=== PATIENT | female | born 1990 | race Asian ===

== ENCOUNTER 2020-04-16 14:47 | Outpatient (CLI) | payer BC ==
[2020-04-16] MEDS ORDERED: IOVERSOL 320 100 ML VIAL IVP ONE (15:10)
--- NOTE | 2020-04-16 16:54 | CT Report ---
PROCEDURE: ABDOMEN W INDICATIONS: Cough, dyspnea CONTRAST: IV CONTRAST: Optiray 320 ml: 100 PO CONTRAST: Optiray 320 ml50 TECHNIQUE: After the administration of oral and intravenous contrast, 5 mm thick sections acquired from the diap hragms to the iliac crests. 5 mm thick coronal and sagittal reformats were acquired. For radiation dose reduction, the following was used: automated exposure control, adjustment of mA and/or kV accor ding to patient size. COMPARISON: None. FINDINGS: Image quality: Excellent. Lung bases: Lung bases are clear. Heart size is normal. Solid organs: Liver and spleen are normal in size and enhancement. Gallbladder is normal. Biliary system is non dilated. Pancreas enhances normally. No adrenal nodules. Kidneys are normal in size, without hydronephrosis. Peritoneum and bowel: Contrast enhanced bowel loops appear normal in caliber. No free fluid or air. Nodes and vessels: No retroperitoneal or mesenteric adenopathy by size criteria. Aorta and inferior vena cava are normal in size. Bones: No suspicious bony lesions. No vertebral body compression fractures. Miscellaneous: No ventral hernias. IMPRESSION: No acute finding or other finding to explain symptoms. Reviewed by: Arturo Feng MD on 04/16/2020 4:52 PM PST Approved by: Arturo Feng MD on 04/16/2020 4:52 PM PST Station ID: [id number]
== END 2020-04-16 14:48 | disposition home or self-care (01) ==
LOC: DI 14:47
DX: K43.9 Ventral hernia without obstruction or gangrene (principal)
CPT/HCPCS: 74160; Q9967

== ENCOUNTER 2020-06-11 09:24 | Outpatient (CLI) | payer BC ==
--- NOTE | 2020-06-11 10:38 | XRAY Report ---
PROCEDURE: Ribs w/PA Chest LT INDICATIONS: PLEURODYNIA TECHNIQUE: 3 views of the left ribs were acquired, along with a single view chest. COMPARISON: None FINDINGS: Surgical changes and devices: None. Bones and chest wall: No fractures or dislocations. No suspicious bony lesions. Overlying soft tis sues appear unremarkable. Lungs and pleura: No pleural effusions or pneumothorax. Lungs appear clear. Mediastinum: Mediastinal contours appear normal. Heart size is normal. IMPRESSION: 1. No evidence of displaced left rib fracture. 2. No evidence acute pulmonary process. Reviewed by: Da Clement MD on 06/11/2020 10:37 AM PDT Approved by: Da Clement MD on 06/11/2020 10:37 AM PDT Station ID: [id number]
== END 2020-06-11 09:25 | disposition home or self-care (01) ==
LOC: DI.S 09:24
PROVIDERS: ATTEND Physician Assistant
DX: R07.81 Pleurodynia (principal)